=== PATIENT | male | born 1950 | race Caucasian/White ===

== ENCOUNTER 2023-04-22 14:50 | Outpatient (CLI) | payer MEDICARE, SELFPAY ==
--- NOTE | ~2023-04-22 | XR_ITS ---
XR wrist RT min 3V DATE: 04/22/2023 15:09 INDICATION: Right wrist pain after injury 2 days ago TECHNIQUE: 4 views COMPARISON: None FINDINGS: There is prominent osteoarthritic change at the first carpometacarpal joint and fourth meta carpophalangeal joint. No fracture, dislocation, periosteal reaction or bone destruction. No erosive change or chondrocalcin osis is noted. 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 IMPRESSION: No fracture or dislocation Prominent osteoarthritis at first carpometacarpal joint and fourth metacarpopha langeal joint
== END 2023-04-22 14:51 | disposition home or self-care (01) ==
PROVIDERS: PCP Internal Medicine; Visit Provider Internal Medicine
DX: M19.031 Primary osteoarthritis, right wrist (principal)
CPT/HCPCS: 73110

== ENCOUNTER 2024-07-07 09:44 | Outpatient (CLI) | payer MEDICARE, SELFPAY | END 2024-07-07 09:45 | disposition home or self-care (01) | PROVIDERS: PCP Nurse Practitioner Family; Visit Provider Nurse Practitioner Family | DX: H90.3 Sensorineural hearing loss, bilateral (principal); H93.19 Tinnitus, unspecified ear | CPT/HCPCS: 92557; 92567 ==